=== PATIENT | female | born 1965 | race Caucasian/White ===

== ENCOUNTER 2018-02-15 17:23 | Emergency (ER) | payer OTHER ==
[2018-02-15 17:27] VITALS: BP 165/75; PULSE 90; TEMP 98.3; BMI 28.3
--- NOTE | 2018-02-15 18:03 | PDOC ---
History of Present Illness - General Chief Complaint: Eye Problem Stated Complaint: EYE PROBLEM Time Seen by Provider: 02/15/18 17:29 Past History - Past Medical History Allergies/Adverse Reactions: Allergies Allergy/AdvReac Type Severity Reaction Status Date / Time No Known Allergies Allergy Verified 02/15/18 17:27 Home Medications: Ambulatory Orders NK [No Known Home Medication] 03/18/14 Losartan Potassium 50 mg PO DAILY 10/31/15 COPD: No HTN: Yes - Suicide/Smoking/Psychosocial Hx Smoking History: Never smoked Have you smoked in the past 12 months: No Number of Cigarettes Smoked Daily: 0 Hx Alcohol Use: No Drug/Substance Use Hx: No *Physical Exam - Vital Signs Last Vital Signs Temp Pulse Resp BP Pulse Ox 98.3 F 90 18 165/75 100 02/15/18 17:24 02/15/18 17:24 02/15/18 17:24 02/15/18 17:24 02/15/18 17:24 *DC/Admit/Observation/Transfer Diagnosis at time of Disposition: Subconjunctival hemorrhage Qualifiers: Laterality: left Qualified Code(s): H11.32 - Conjunctival hemorrhage, left eye - Discharge Dispostion Disposition: HOME Condition at time of disposition: Stable Decision to Admit order: No - Referrals Referrals: J Carlos Munoz [Staff Physician] - - Patient Instructions Printed Discharge Instructions: DI for Subconjunctival Hemorrhage Additional Instructions: You have subconjunctival hemorrhage This will heal on its own Please monitor your blood pressure at home. Buy a blood pressure cuff and take your pressure in the morning and night Follow up with ophthalmology in one week if your symptoms are not improving Follow up with your primary care doctor to discuss your blood pressure Return to the ED for any new or worsening symptoms such as headaches, dizziness or visual changes. - Post Discharge Activity
== END 2018-02-15 18:28 | disposition home or self-care (01) ==
LOC: JERFT 17:23
DX: H11.32 Conjunctival hemorrhage, left eye (principal); I10 Essential (primary) hypertension
CPT/HCPCS: 99281-25

== ENCOUNTER 2018-02-16 23:55 | Emergency (ER) | payer OTHER ==
[2018-02-16 23:59] VITALS: TEMP 98.2; BMI 28.3
--- NOTE | 2018-02-17 00:43 | PDOC ---
History of Present Illness <Hardy George - Last Filed: 02/17/18 02:25> - General History Source: Patient - History of Present Illness Initial Comments: 02/17/18 00:44 The patient is a 52 year old female with a PMH of HTN who presents to our ED this evening following a drugstore BP reading of 180's/100's around 9 p.m. Patient states she was worried because she had a headache today and a burst blood vessel in her eye yesterday. Adheres to her BP medication regimen ( Losartan 25). Does measure her BP at home, but states she has a wrist cuff which she thinks is inaccurate. PMD has advised patient to undergo cardiac stress testing, however she has not done so yet. Maternal from [place] in 40' s. ROS is positive for headache which is pressure like, frontal. C/w previous headaches. The patient denies chest pain, shortness of breath, abdominal pain, nausea/ vomiting, diarrhea/constipation. NKDA Surgical: none reported Social: denies toxic habits PMD: Dr. Darrel Zamarripa As per EMR, patient evaluated two days previous (02/16/16) for subconjuntival hemmorhage at which time her BP was 165/75. <Nica Berry - Last Filed: 02/17/18 02:58> - General Chief Complaint: Blood Pressure Problem Stated Complaint: HIGH BLOOD PRESSURE Time Seen by Provider: 02/17/18 00:41 Past History <Hardy George - Last Filed: 02/17/18 02:25> - Past Medical History COPD: No HTN: Yes - Suicide/Smoking/Psychosocial Hx Smoking History: Never smoked Have you smoked in the past 12 months: No Number of Cigarettes Smoked Daily: 0 Hx Alcohol Use: No Drug/Substance Use Hx: No <Nica Berry - Last Filed: 02/17/18 02:58> - Past Medical History Allergies/Adverse Reactions: Allergies Allergy/AdvReac Type Severity Reaction Status Date / Time No Known Allergies Allergy Verified 02/17/18 01:31 Home Medications: Ambulatory Orders Losartan Potassium 25 mg PO DAILY 10/31/15 Review of Systems - Review of Systems Constitutional: No: Chills, Fever HEENTM: Yes: Other (Headache). No: Blurred Vision, Double Vision Respiratory: No: Cough, Shortness of Breath Cardiac (ROS): No: Lightheadedness, Palpitations, Syncope ABD/GI: No: Constipated, Diarrhea, Nausea, Vomiting <Nica Berry - Last Filed: 02/17/18 02:58> *Physical Exam - Vital Signs Last Vital Signs Temp Pulse Resp BP Pulse Ox 98.2 F 78 18 196/88 H 97 02/16/18 23:57 02/16/18 23:57 02/16/18 23:57 02/16/18 23:57 02/16/18 23:57 <Hardy George - Last Filed: 02/17/18 02:25> - Vital Signs Last Vital Signs Temp Pulse Resp BP Pulse Ox 98.2 F 78 18 196/88 H 97 02/16/18 23:57 02/16/18 23:57 02/16/18 23:57 02/16/18 23:57 02/16/18 23:57 - Physical Exam General Appearance: Yes: Nourished, Appropriately Dressed HEENT: positive: Normal Voice, Hearing Grossly Normal Neck: positive: Trachea midline, Supple Respiratory/Chest: positive: Lungs Clear, Normal Breath Sounds. negative: Crackles, Wheezing Cardiovascular: positive: S1, S2 Vascular Pulses: Dorsalis-Pedis (R): 2+, Doralis-Pedis (L): 2+ Gastrointestinal/Abdominal: positive: Normal Bowel Sounds, Soft. negative: Guarding, Tenderness, Hernia, Mass Extremity: positive: Normal Capillary Refill, Normal Inspection Integumentary: positive: Normal Color, Dry, Warm Neurologic: positive: Fully Oriented, Alert <Nica Berry - Last Filed: 02/17/18 02:58> Medical Decision Making - Medical Decision Making 02/17/18 01:00 52 year old female with HTN, presents with elevated BP (188/96 @ triage). Repeat BP @ bedside 154/91. Other VS unremarkable. Repeat BP @ bedside 154/ 91. As patient is c/o headache and has 2 elevated BP readings this evening, will CT head to r/o ischemic event. 02/17/18 01:33 Repeat 134/[address] 02/17/18 02:[address] negative 02/17/18 02:49 Repeat BP 135/83. Tylenol for GONZALEZ. Will discharge home with return precautions, neurology referral for evaluation of headaches and PMD follow-up for manager long term care hypertension management. <Nica Berry - Last Filed: 02/17/18 02:58> *DC/Admit/Observation/Transfer <Hardy George - Last Filed: 02/17/18 02:25> - Discharge Dispostion Decision to Admit order: No <Nica Berry - Last Filed: 02/17/18 02:58> Diagnosis at time of Disposition: Elevated blood pressure reading - Discharge Dispostion Disposition: HOME Condition at time of disposition: Good - Referrals Referrals: Darrel Zamarripa [Primary Care Provider] - Jeff Hall DO [Staff Physician] - - Patient Instructions Printed Discharge Instructions: DI for High Blood Pressure Additional Instructions: Your CT scan today was normal. However, this does not rule out all serious brain problems. Call the number provided to make an appointment with our neurologist for further evaluation of your headache. You also need to have your blood pressure re-checked by your primary doctor, as it was slightly elevated today. Uncontrolled blood pressure can eventually lead to kidney disease, heart disease, other serious illness, disability, or even . If you experience worsening or persistent headaches, chest pain, shortness of breath, or any other concerning symptoms, return to the ER immediately. - Post Discharge Activity
[2018-02-17] MEDS ORDERED: ACETAMINOPHEN 325 MG TABLET (FP) PO ONE (02:23)
[2018-02-17] MEDS ORDERED: ACETAMINOPHEN 325 MG TABLET (FP) ONE (02:26)
--- NOTE | 2018-02-17 02:27 | PDOC ---
Attending Attestation - Resident Resident Name: Nica Berry - ED Attending Attestation I have performed the following: I have examined & evaluated the patient, The case was reviewed & discussed with the resident, I agree w/resident's findings & plan, Exceptions are as noted
--- NOTE | 2018-02-17 02:44 | PDOC ---
Attending Attestation - Resident Resident Name: Nica Berry - ED Attending Attestation I have performed the following: I have examined & evaluated the patient, The case was reviewed & discussed with the resident, I agree w/resident's findings & plan, Exceptions are as noted - HPI HPI: 02/17/18 02:37 52 F with h/o HTN presents to ED with elevated BP x 1 day. Pt states that her BP at baseline is 130s systolic. Today at [facility], she checked her BP and found it to be 190/100. Pt denies any CP/SOB. She does endorse mild frontal headache. Denies thunderclap, denies worst headache of life, denies N/V. Pt states that she has had similar headaches in the past, usually in the context of elevated BP. Denies weakness/numbness in any extremity. Pt states she takes losartan 25 mg, is compliant with her meds. - Physicial Exam PE: 02/17/18 02:44 "GENERAL: Awake, alert, and fully oriented, in no acute distress. HEAD: No signs of trauma EYES: PERRLA, EOMI, sclera anicteric, conjunctiva clear ENT: Auricles normal inspection, hearing grossly normal, nares patent, oropharynx clear without exudates. Moist mucosa NECK: Nontender, no stepoffs, Normal ROM, supple, no lymphadenopathy, JVD, or masses LUNGS: Breath sounds equal, clear to auscultation bilaterally. No wheezes, and no crackles HEART: Regular rate and rhythm, normal S1 and S2, no murmurs, rubs or gallops ABDOMEN: Soft, nontender, normoactive bowel sounds. No guarding, no rebound. No masses EXTREMITIES: Normal range of motion, no edema. No clubbing or cyanosis. No cords, erythema, or tenderness NEUROLOGICAL: Cranial nerves II through XII intact. 5/5 strength and sensation in all extremities, Normal speech, normal gait, normal cerebellar function SKIN: Warm, Dry, normal turgor, no rashes or lesions noted. - Medical Decision Making 02/17/18 02:44 52 F with elevated BP and GONZALEZ. Will obtain CT head to r/o ICH, though pt is very well appearing and GONZALEZ is mild. Pt with no CP/SOB or other symptoms to suggest end organ damage. - CT head - Recheck BP 02/17/18 02:49 CT head negative Repeat BP 130/80 Pt is well appearing, with normal vitals. Clinically stable for DC at this time. I discussed the physical exam findings, ancillary test results and final diagnoses with the patient. I answered all of the patient's questions. The patient was satisfied with the care received and felt comfortable with the discharge plan and treatment plan. The patient agrees to follow up with the primary care physician within 24-72 hours.
[2018-02-17 02:55] VITALS: BP 135/83; PULSE 70
== END 2018-02-17 02:59 | disposition home or self-care (01) ==
LOC: JER 23:55
DX: I10 Essential (primary) hypertension (principal)
CPT/HCPCS: 70450-TC; 99281-25